=== PATIENT | male | born 1945 | race Caucasian/White ===

== ENCOUNTER 2023-02-19 14:07 | Outpatient (CLI) | payer OTHER, MEDICARE | END 2023-02-19 14:08 | disposition home or self-care (01) | LOC: RAD 14:07 | PROVIDERS: ATTEND Family Medicine | DX: M25.552 Pain in left hip (principal) ==

== ENCOUNTER 2023-03-13 09:35 | Outpatient (CLI) | payer OTHER | END 2023-03-13 09:36 | disposition home or self-care (01) | LOC: BICMRI 09:35 | PROVIDERS: ATTEND Family Medicine | DX: M25.552 Pain in left hip (principal); M25.451 Effusion, right hip; M25.452 Effusion, left hip ==